=== PATIENT | male | born 1970 ===

== ENCOUNTER → 2017-06-20 | Emergency (ER) | payer BC ==
[~2017-06-20] VITALS: Ht 188 cm; Wt 136.1 kg
[~2017-06-20] MED LIST: LOSARTAN POTASS25 MG; WELLBUTRIN XL300 MG; ZOLOFT100 MG
== END | disposition home or self-care (01) ==
LOC: ER 19:36
DX: I10 Essential (primary) hypertension (principal)

== ENCOUNTER 2017-08-24 19:47 | Emergency (ER) | payer BC ==
[~2017-08-24] VITALS: Ht 188 cm; Wt 136.1 kg
== END 2017-08-24 22:45 | disposition home or self-care (01) ==
LOC: ER 19:47
DX: H66.91 Otitis media, unspecified, right ear (principal); H60.8X1 Other otitis externa, right ear